=== PATIENT | female | born 1995 | race Native Hawaiian/Other Pacific Islander ===

== ENCOUNTER 2022-04-27 13:25 | Outpatient (CLI) | payer OTHER ==
[2022-04-27 13:41] LABS: PLATELET COUNT 304 K/uL (152-353)
[2022-04-27 14:01] LABS: POTASSIUM 4.2 mmol/L (3.6-5.2)
== END 2022-04-27 19:17 | disposition home or self-care (01) ==
LOC: LAB 13:25
PROVIDERS: ATTEND Internal Medicine
DX: F90.1 Attention-deficit hyperactivity disorder, predominantly hyperactive type (principal)
CPT/HCPCS: 80053; 84439; 84443; 85027